=== PATIENT | female | born 1970 | race Caucasian/White ===

== ENCOUNTER 2021-07-02 22:53 | Emergency (ER) | payer OTHER ==
[2021-07-02 23:03] VITALS: BMI 33.6
[2021-07-03 00:42] LABS: BASO % 0.7 % (0-2.0); EOS % 1.9 % (0-4.5); HEMOGLOBIN 12.1 GM/dL (10.7-15.3); LYMPH % 19.5 % (8-40); MCH 26.1 pg (25.7-33.7); MCHC 31.7 g/dl (32.0-36.0); MEAN CELL VOLUME 82.3 fl (80-96); MEAN PLT VOLUME 7.9 fl (7.5-11.1); NEUT % 70.9 % (42.8-82.8); PLATELET COUNT 470 10^3/uL (134-434); RBC 4.62 M/mm3 (3.60-5.2); RDW 15.3 % (11.6-15.6); WHITE BLOOD COUNT 9.2 K/mm3 (4.0-10.0)
[2021-07-03 00:48] LABS: URINE APPEARANCE CLEAR; URINE BILIRUBIN NEGATIVE (NEGATIVE); URINE COLOR YELLOW; URINE GLUCOSE (UA) NEGATIVE (NEGATIVE); URINE KETONE NEGATIVE (NEGATIVE); URINE LEUK ESTERASE NEGATIVE (NEGATIVE); URINE NITRITE NEGATIVE (NEGATIVE); URINE PROTEIN NEGATIVE (NEGATIVE); URINE UROBILINOGEN 0.2 mg/dL (0.2-1.0)
[2021-07-03 01:08] LABS: BLOOD UREA NITROGEN 9.2 mg/dL (7-18); CALCIUM 8.8 mg/dL (8.5-10.1)
[2021-07-03 01:09] LABS: ALBUMIN 3.6 g/dl (3.4-5.0)
[2021-07-03 01:11] LABS: CREATININE 0.6 mg/dL (0.55-1.3)
[2021-07-03 01:13] LABS: BILIRUBIN,TOTAL 0.3 mg/dL (0.2-1); TOT PROT 7.2 g/dl (6.4-8.2)
[2021-07-03 01:52] VITALS: BP 132/69; PULSE 80
[2021-07-03 01:53] VITALS: TEMP 97.5
== END 2021-07-03 01:59 | disposition home or self-care (01) ==
LOC: JER 22:53
DX: R63.1 Polydipsia (principal); R35.89 Other polyuria; R00.2 Palpitations
CPT/HCPCS: 36415; 80053; 81003; 84439; 84443; 85025; 93005; 93010; 99284-25